=== PATIENT | female | born 1960 | race Caucasian/White ===

== ENCOUNTER 2024-05-09 05:59 | Day surgery (SDC) | payer MEDICARE ==
[~2024-05-09] VITALS: Ht 160 cm; Wt 68.0 kg
[2024-05-09] VITALS (11 sets, daily range): BP systolic 89–120; BP diastolic 40–69; PULSE 66–84; RESP 14–20; TEMP 97–97.5
[~2024-05-09 05:59] MED LIST: CIPR500S4 PO; CLON2TAB21 PO; ROPI0.5T37 PO
[2024-05-09] MEDS: 0.9%NACL 1000ML 1,000 ML IV ONE (06:58)
[2024-05-09] MEDS ORDERED: proPOFol 10 MG/ML 20ML VIAL IV ONE (07:46)
--- NOTE | 2024-05-09 09:29 | NUR ---
FULL AND COMPLETE DISCHARGE INSTRUCTIONS GIVEN TO PATIENT AND FAMILY BOTH VERBALLY AND IN WRITING. VOICED UNDERSTANDING TO GI PROCEDURE PRECAUTIONS AND FOLLOW UP PIV REMOVED WITH CATHETER TIP INTACT. W/C WITH FAMILY TO POV TO HOME.
== END 2024-05-09 09:30 | disposition home or self-care (01) ==
LOC: ENDO 05:59 → DAH 05:59 → ENDO 09:30
PROVIDERS: ATTEND Internal Medicine Gastroenterology
DX: R19.7 Diarrhea, unspecified (principal); D12.3 Benign neoplasm of transverse colon; R11.2 Nausea with vomiting, unspecified; K57.30 Diverticulosis of large intestine without perforation or abscess without bleeding; K31.89 Other diseases of stomach and duodenum; Z90.89 Acquired absence of other organs; Z98.51 Tubal ligation status; Z98.0 Intestinal bypass and anastomosis status; Z88.8 Allergy status to other drugs, medicaments and biological substances; Z79.899 Other long term (current) drug therapy; Z98.890 Other specified postprocedural states
CPT/HCPCS: 43239; 45380; 45385; J7030 ×2; J2704; A4620; A4215 ×2; A4223; A4222; A4221; A4663; A4606; J3490